=== PATIENT | female | born 1990 | race Caucasian/White ===

== ENCOUNTER 2017-01-05 09:05 | Inpatient (IN) | payer MEDICAID ==
[~2017-01-05] VITALS: Ht 157.5 cm; Wt 67.3 kg
--- NOTE | 2017-01-05 09:30 | NUR ---
PT BROUGHT TO ED BY MOTHER FROM HOME C/O RIGHT SIDED FLANK AND BACK PAIN WITH INTERMITTENT FEVER AND BODYACHES X1 DAY AND UTI SYMPTOMS X "FOREVER" WORSE SINCE THIS MORNING. PT A/O X4, INTERMITTENT TEARFULNESS, GENERALIZED WEAKNESS NOTED, RESPS EVEN AND UNLABORED, SKIN HOT, SLIGHLY MOIST TO TOUCH, NO S/S OF DISTRESS NOTED. PT DESCRIBES PAIN SHARP TO RIGHT FLANK AND PAIN "TO BONES." PT GOWNED, COOLING MEASURES IN PLACE.
--- NOTE | 2017-01-05 09:32 | NUR ---
DR. RODRIGUEZ AT BEDSIDE FOR MSE.
[2017-01-05 10:01] LABS: PLATELET COUNT 305 x10^3mcL (130-400)
--- NOTE | 2017-01-05 10:06 | NUR ---
PORTABLE CHEST X-RAY IN PROGRESS AT BEDSIDE.
[2017-01-05 10:08] LABS: RED CELL DISTRIBUTION WIDTH 14.6 % (11.5-14.5)
--- NOTE | 2017-01-05 10:10 | NUR ---
I INFORMED DR SOLIS REGARDING THE WBC'S FROM LAB CALLED HE IS AWARE
[2017-01-05 10:23] LABS: CALCIUM 8.2 mg/dL (8.5-10.1); CARBON DIOXIDE 26.4 mmol/L (21-32); CHLORIDE SERUM 95 mmol/L (98-107); CREATININE SERUM 0.9 mg/dL (0.6-1.0); GFR1 > 60 mL/min; GLUCOSE SERUM 132 mg/dL (74-106); POTASSIUM SERUM 3.6 mmol/L (3.5-5.1); SODIUM SERUM 132 mmol/L (136-145)
[2017-01-05 10:27] LABS: ALKALINE PHOSPHATASE 86 U/L (46-116); ALT/SGPT 22 U/L (14-59); AST/SGOT 18 U/L (15-37); BILIRUBIN TOTAL 0.5 mg/dL (0.20-1.00); TOTAL PROTEIN, SERUM 7.8 g/dL (6.4-8.2)
[2017-01-05 10:29] LABS: ALBUMIN 3.2 g/dL (3.4-5.0)
[2017-01-05 10:40] LABS: BAND NEUTROPHIL 5 % (0-10); BASOPHIL 0 % (0-2); MONOCYTE 5 % (0-7); SEGMENTED NEUTROPHILS 85 % (37-75)
[2017-01-05 10:41] LABS: PLATELET MORPHOLOGY PLATELETS INCREASED; rbc morphology (normal/abnorm) ABNORMAL (NORMAL)
--- NOTE | 2017-01-05 10:45 | NUR ---
PT LAYING IN ED GURNEY IN POSITION OF COMFORT, CONTINUES TO SLEEP AND BE EASILY AROUSABLE, RESPS EVEN AND UNLABORED, SKIN WARM AND DIAPHORETIC, COOLING MEASURES CONTINUED, NO S/S OF DISTRESS NOTED.
--- NOTE | 2017-01-05 10:50 | NUR ---
ROCEPHIN 1G IV COMPLETED TO LEFT AC IV WITH NO ADVERSE REACTIONS AND NO SIGNS OF INFILTRATION NOTED TO IV SITE. PT IN NO DISTRESS.
--- NOTE | 2017-01-05 11:01 | NUR ---
22OOCC NS BOLUS IV COMPLETED PER MD ORDER AND SESPIS PROTOCOL. PT IN NO DISTRESS.
[2017-01-05 11:12] LABS: UA SPECIFIC GRAVITY <=1.005 (1.005-1.035); microscopic required? YES; urine erythrocyte 1+ (NEGATIVE)
--- NOTE | 2017-01-05 11:26 | NUR ---
PT LAYING IN ED GURNEY IN POSITION OF COMFORT, SLEEPING AND EASILY AROUSABLE, RESPS EVEN AND UNLABORED, COOLING MEASURES CONTINUED, TEMP DECREASED TO 100.2F ORAL, NO S/S OF DISTRESS NOTED. COMFORT MEASURES IN PLACE.
--- NOTE | 2017-01-05 11:40 | NUR ---
PT LAYING IN ED GURNEY, SKIN NOW WARM AND DRY TO TOUCH, RESPS EVEN AND UNLABORED, NO S/S OF DISTRESS NOTED.
--- NOTE | 2017-01-05 12:01 | NUR ---
RESIDENT AT BEDSIDE FOR EVAL.
[2017-01-05 12:24] LABS: AMPHETAMINE QUAL UR POSITIVE (NEG <=1000)
[2017-01-05 12:29] LABS: MAGNESIUM 1.3 mg/dL (1.8-2.4); PHOSPHOROUS 3.2 mg/dL (2.5-4.9)
[2017-01-05 12:31] LABS: CHOLESTEROL/HDL RATIO 1.7
[2017-01-05 12:41] LABS: T4(THYROXINE) 5.8 ug/dL (4.7-13.3)
--- NOTE | 2017-01-05 12:41 | NUR ---
REPORT CALLED TO LUKASZ RN, PT TO BE ADMITTED TO TELE ROOM 253, PT IN NO DISTRESS.
--- NOTE | 2017-01-05 12:45 | NUR ---
RECEIVED PT FROM ED VIA GURNEY IN NO ACUTE DISTRESS. PT AMBULATED TO BED. RESPIRATIONS EVEN AND UNLABORED ON RA. AAOX4. PT HAS HR OF 100, ALL OTHER VITALS WNL. PT C/O R FLANK PAIN BUT DOES NOT WANT PAIN MEDS AT THIS TIME. SKIN COOL TO TOUCH, DRY/INTACT. STOMACH ROUND, SOFT, NON TENDER. TRACE EDEMA TO BLE. IVF INFUSING AT BEDSIDE. BED IN LOWEST POSITION. CALL LIGHT WITHIN REACH. WILL CONTINUE TO MONITOR.
[2017-01-05 13:10] VITALS: BP 103/62
[2017-01-05 13:14] VITALS: BP 103/62
[2017-01-05 13:15] VITALS: Ht 157.5 cm; Wt 67.3 kg
[2017-01-05 15:58] LABS: T3 TOTAL 0.96 ng/mL
--- NOTE | 2017-01-05 16:05 | NUR ---
PT EXPERIENCING CHILLS, BP 118/97 (104), TEMP 99.3, HR 104, RESP 22, SPO2 95 ON RA. PT GIVEN WARM BLANKET, TORADOL GIVEN FOR 8/10 R FLANK PAIN. NS INFUSINGAT 100 ML/HR. DR PEREIRA AWARE.
[2017-01-05 18:10] VITALS: BP 118/97
--- NOTE | 2017-01-05 18:52 | NUR ---
PT RESTING IN BED IN NO ACUTE DISTRESS. RESPIRATIONS EVEN AND UNLABORED ON RA. AAOX4. IVF INFUSING AT BEDSIDE. PT SAYS PAIN IS TOLERABLE AT THIS TIME. ALL NEEDS AND CONCERNS ADDRESSED. IVF INFUSING AT BEDSIDE. BED IN LOWEST POSITION. CALL LIGHT WITHIN REACH. WILL ENDORSE TO ONCOMING SHIFT.
--- NOTE | 2017-01-05 19:45 | NUR ---
RECEIVED PT FROM PREVIOUS SHIFT NURSE. PT AOX4. TELE #18, ST, HR 116. DENIES CP/PRESSURE. PULSES PRESENT, TRACE EDEMA BLE. LUNG SOUNDS CLEAR, ON RA. DENIES SOB/DIFFICULTY BREATHING. BOWEL SOUNDS ACTIVE. VOIDS FREELY. GENERALIZED WEAKNESS. SKIN INTACT. IV INTACT AND PATENT. BED IN LOWEST POSITION. CALL LIGHT WITHIN REACH. WILL CONTINUE TO MONITOR.
--- NOTE | 2017-01-05 21:04 | NUR ---
TEMP 102.6, [place] RECENTLY GIVEN. ICE PACKS APPLIED. WILL CONTINUE TO MONITOR.
[2017-01-05 21:07] VITALS: BP 114/69
--- NOTE | 2017-01-05 22:09 | NUR ---
TEMP RECHECKED, NOW 98.8. WILL CONTINUE TO MONITOR.
--- NOTE | 2017-01-06 01:22 | NUR ---
PT RESTING IN BED. RR EVEN AND UNLABORED. NO ACUTE DISTRESS NOTED. CALL LIGHT WITHIN REACH. BED IN LOWEST POSITION. WILL CONTINUE TO MONITOR.
[2017-01-06 05:31] VITALS: BP 106/61
[2017-01-06 06:56] LABS: CALCIUM 7.4 mg/dL (8.5-10.1); CARBON DIOXIDE 27.2 mmol/L (21-32); CHLORIDE SERUM 102 mmol/L (98-107); CREATININE SERUM 0.6 mg/dL (0.6-1.0); GFR1 > 60 mL/min; GLUCOSE SERUM 105 mg/dL (74-106); MAGNESIUM 1.5 mg/dL (1.8-2.4); POTASSIUM SERUM 3.3 mmol/L (3.5-5.1); SODIUM SERUM 136 mmol/L (136-145)
[2017-01-06 06:59] LABS: PLATELET COUNT 236 x10^3mcL (130-400)
[2017-01-06 07:06] LABS: RED CELL DISTRIBUTION WIDTH 15.1 % (11.5-14.5)
--- NOTE | 2017-01-06 07:25 | NUR ---
AAO X4.C/O H/A AT 7/10 PAIN SCALE.WILL MEDICATE NEEDED.LUNGS CLEAR. ON SR-ST ON THE MONITOR.IVF NS GOING AT 100 ML/HR INFUSING WELL.CALL LIGHT WITHIN REACH.INSTRUCTED TO CALL FOR ANY PAIN/DISCOMFORT.WILL CONTINUE TO MONITOR PT.
[2017-01-06 08:34] LABS: BAND NEUTROPHIL 4 % (0-10); BASOPHIL 0 % (0-2); MONOCYTE 8 % (0-7); SEGMENTED NEUTROPHILS 79 % (37-75)
[2017-01-06 08:36] LABS: PLATELET MORPHOLOGY PLATELETS NORMAL; rbc morphology (normal/abnorm) ABNORMAL (NORMAL)
[2017-01-06 09:07] VITALS: BP 102/61
--- NOTE | 2017-01-06 09:30 | NUR ---
WENT TO CHECK ON PT.CRYING.CLAIMS WANT TO GO HOME BUT SHE'S NOT WELL YET.MISSES HER CHILDREN A LOT. REASSURED PT.ALSO TELLS NURSE THAT SHE IS AFRAID TO .REASSURED PT THAT SHE IS IN THE HOSPITAL.AND SHE'S GETTING TREATMENT FOR HER UTI AND PYELONEPHRITIS.INFORMED PT TO RELAX.WILL CONTINUE TO MONITOR.
--- NOTE | 2017-01-06 12:55 | NUR ---
C/O BACK PAIN. MEDICATED WITH NORCO PER EMAR.
[2017-01-06 13:22] VITALS: BP 102/68
--- NOTE | 2017-01-06 14:03 | NUR ---
ALSO C/O CHILLS.CHECKED HER T=98.7.
--- NOTE | 2017-01-06 14:03 | NUR ---
MEDICATED WITH TORADOL ORDERED FOR C/O UNRELIEVED H/A AT 8/10 PAIN SCALE. WILL CONTINUE TO MONITOR.
--- NOTE | 2017-01-06 14:45 | NUR ---
WENT TO CHECK ON PATIENT.CRYING WHILE TALKING ON THE PHONE WITH SOMEBODY .
--- NOTE | 2017-01-06 15:45 | NUR ---
WENT TO CHECK ON PT.CLAIMS TO FEEL A LOT BETTER.DENIES ANY H/A AND SHAKING AT THE MOMENT.
[2017-01-06 17:23] VITALS: BP 98/63
--- NOTE | 2017-01-06 17:38 | NUR ---
GAVE PT NORCO 1 TAB FOR C/O H/A AND BACK PAIN AT 8/10 PAIN SCALE.WILL CONTINUE TO MONITOR.
--- NOTE | 2017-01-06 18:27 | NUR ---
NO SIGNIFICANT CHANGE NOTED.WILL ENDORSE TO NEXT SHIFT.
--- NOTE | 2017-01-06 19:50 | NUR ---
PT. SHOWERED AND BACK TO BED. PT. WAS ALSO ABLE TO VISIT HER KIDS IN [employer], ACCOMPANIED BY NURSE AND IS PRESENTLY BACK IN ROOM. NO COMPLAINTST AT THIS TIME. PT. AWAKE, ALERT, ORIENTED X4. DENIES HEADACHE OR DIZZINESS. BREATH SOUNDS CLEAR THROUGHOUT LUNG NEVAREZ, RESP. EVEN, UNLABORED. NO SOB NOTED. NO EDEMA TO EXTREMITIES. PEDAL PULSES STRONG. IV SITE WNL, FLUSHING WELL. CALL LIGHT WITHIN REACH.
[2017-01-06 20:38] VITALS: BP 101/53
--- NOTE | 2017-01-06 21:45 | NUR ---
PT. C/O PAIN IN BACK OF HER NECK AND LOWER BACK PAIN. PAIN IN NECK, 10/10 PER PT. PT. CRYING AND MOANING. DR. HERNANDEZ AWARE. HEATING PAD ORDERED. ALSO ORDERS TO GIVE TORADOL W/ HEATING PAD. WILL MONITOR.
--- NOTE | 2017-01-07 03:30 | NUR ---
PT. AWAKENED AND CRYING, STATED THAT SHE IS COLD AND THE COLD IS CAUSING HER TO HAVE PAIN IN HER RT CHEST AREA THAT RADIATES TO HER BACK. ALSO C/O HEADACHE. PT. OFFERED WARM BLANKET. PRN NORCO GIVEN. WILL MONITOR.
[2017-01-07 05:14] VITALS: BP 118/79
[2017-01-07 06:03] LABS: PLATELET COUNT 254 x10^3mcL (130-400)
--- NOTE | 2017-01-07 06:03 | NUR ---
PT. C/O HEADACHE AND BACK PAIN. PRN TORADOL IVP GIVEN.
[2017-01-07 06:24] VITALS: BP 118/79
[2017-01-07 06:33] LABS: CALCIUM 7.9 mg/dL (8.5-10.1); CARBON DIOXIDE 26.5 mmol/L (21-32); CHLORIDE SERUM 104 mmol/L (98-107); CREATININE SERUM 0.6 mg/dL (0.6-1.0); GFR1 > 60 mL/min; GLUCOSE SERUM 102 mg/dL (74-106); MAGNESIUM 1.8 mg/dL (1.8-2.4); POTASSIUM SERUM 3.8 mmol/L (3.5-5.1); SODIUM SERUM 137 mmol/L (136-145)
[2017-01-07 06:44] LABS: BASOPHIL % 0 % (0-2)
--- NOTE | 2017-01-07 07:50 | NUR ---
PT RECEIVED AAOX4, CONVERSING WELL IN FULL SENTENCES. DENIES ANY HEADACH AT THIS TIME. C/O NECK PAIN THAT OCCASIONALLY RADIATES TO HEAD. RESP EVEN AND UNLABORED ON RA. DENIES ANY SOB OR COUGH. DENIES ANY CP OR PRESSURE. IV ON LAC INTACT, 20G, INFUSING NS AT 100ML/HR. ABD ROUND/SOFT WITH ACTIVE BS IN ALL QUADS. DENIES ANY ABD PAIN OR PRESSURE. VOIDING WELL WITH BRP. AMBULATORY. DENIES ANY NEEDS AT THIS TIME. CALL LIGHT WITHIN REACH.
[2017-01-07 09:00] VITALS: BP 109/69
--- NOTE | 2017-01-07 11:02 | NUR ---
PT CONTINUES TO C/O HEADACHE, STARTING FROM NECK AND RADIATING TO NECK. NOTED WITH TENSE MUSCLES ON RIGHT NECK/SHOULDER. KPAD IN PLACE. DR LEE MADE AWARE, WITH NEW ORDER FOR FLEXERIL PO. WILL GIVE ORDERED.
--- NOTE | 2017-01-07 12:15 | NUR ---
PT DENIES ANY HEADACHE AT THIS TIME. DENIES ANY NEEDS AT THIS TIME.
--- NOTE | 2017-01-07 15:50 | NUR ---
PT ASLEEP. RESP EVEN AND UNLABORED. CALL LIGHT WITHIN EASY REACH.
--- NOTE | 2017-01-07 17:07 | NUR ---
PT REFUSING AFTERNOON FINGERSTICK FOR BLOOD GLUCOSE. DR ROSA WOOD.
[2017-01-07 17:23] VITALS: BP 115/69
--- NOTE | 2017-01-07 17:45 | NUR ---
DR PARKER AT BEDSIDE TO EVALUATE PATIENT.
--- NOTE | 2017-01-07 18:04 | NUR ---
PT CRYING WITH A SEVERE HEADACHE AFTER PSYCH EVAL COMPLETED. MEDICATED WITH NORCO ORDERED PRN, SEE EMAR.
--- NOTE | 2017-01-07 18:11 | NUR ---
KEPT ROOM DARK. PT RESTING WITH EYES CLOSED, NO LONGER CRYING. WILL CONTINUE TO MONITOR.
--- NOTE | 2017-01-07 19:21 | NUR ---
BEDSIDE REPORT GIVEN TO EDGAR HGOUE TO ASSUME CARE.
--- NOTE | 2017-01-07 19:30 | NUR ---
PT IS A/O x4. LUNGS ARE CLEAR BILATERALLY. NO COMPLAIN OF CHEST PAIN OR PRESSURE. PT COMPLAINED OF A HEADACHE STATING THAT SHE FEELS THAT, "HER BRAIN IS TRYING TO GET OUT." PT IS VISIABLLY UPSET AND IS TEARFUL. AM NURSE ADMINISTERED PRN MEDICATION. WILL FOLLOW UP ON RESULTS. PM NURSE MADE PT. COMFORTABLE. BOWELS SOUNDS PRESENT. NO EDEMA. PEDIAL PULSES PRESENT. KAPD IS PLACED ON PT BACK. SKIN IS INTACT. IV ON LAC IS PATENT AND NS IS RUNNING PER MD ORDER. NO SIGNS OF INFILTRATION. VISITOR IS AT BEDSIDE. CALL LIGHT WITHIN REACH. WILL CONTINUE TO MONITOR.
--- NOTE | 2017-01-07 20:10 | NUR ---
PT STATES FEELING MUCH BETTER AND HER HEADACHE IS GONE. PT IS NO LONGER TEARFUL. PT IS CALM AND SMILING. MADE PT. COMFORTABLE. WILL CONTINUE TO MONTIOR.
[2017-01-07 21:20] VITALS: BP 112/65
--- NOTE | 2017-01-08 00:30 | NUR ---
PT IS SLEEPING IN BED. NO SIGNS OF ANY PAIN OR DISCOMFORT. BREATHING EVEN AND UNLABORED. IV IS INTACT WITH NO SIGNS OF INFILTRATION. INFUSING NS PER MD ORDER. BED IN LOWEST SETTING. CALL LIGHT WITHIN REACH. WILL CONTINUE TO MONTIOR.
--- NOTE | 2017-01-08 05:56 | NUR ---
PT REFUSED GLUCOSE TEST. MD HERNANDEZ WAS NOTIFIED. NO NEW ORDERES WHERE GIVEN. PT COMPLAIN OF HEADACHE AND PRN WAS ADMIN. PT SEEMS TO BE AGITATED WHEN LAB CAME IN THIS MORNING. PT WAS SETTLED DOWN AND MADE COMFORTABLE. WILL ENDORSE TO AM NURSE.
[2017-01-08 06:11] VITALS: BP 113/70
[2017-01-08 06:25] LABS: BASOPHIL % 0.3 % (0-2); PLATELET COUNT 269 x10^3mcL (130-400)
[2017-01-08 06:28] LABS: CALCIUM 7.9 mg/dL (8.5-10.1); CARBON DIOXIDE 26.2 mmol/L (21-32); CHLORIDE SERUM 102 mmol/L (98-107); CREATININE SERUM 0.7 mg/dL (0.6-1.0); GFR1 > 60 mL/min; GLUCOSE SERUM 140 mg/dL (74-106); POTASSIUM SERUM 3.5 mmol/L (3.5-5.1); RED CELL DISTRIBUTION WIDTH 15.5 % (11.5-14.5); SODIUM SERUM 137 mmol/L (136-145)
--- NOTE | 2017-01-08 07:45 | NUR ---
AWAKE,ALERT AND ORIENTED,DENIES ANY PAIN AT THIS TIME,CALL LIGHT W/ IN REACH NO ACUTE DISTRESS NOTED,CALM AND COOPERATIVE,AMBULATED IN THE BATHROOM AND VOIDING WELL.WILL CONT. PLAN OF CARE.
--- NOTE | 2017-01-08 09:00 | NUR ---
HERE AND SEEN THE PT. MADE ROUNDS W/ OTHER MEDICAL STAFF AND UPDATED PT. PLAN OF CARE.
[2017-01-08 09:18] VITALS: BP 124/81
[2017-01-08] MEDS ORDERED: LEVAQUIN750 MG PO (10:13)
[2017-01-08] MEDS ORDERED: CYCLOBENZAPRINE5 MG PO (10:18)
--- NOTE | 2017-01-08 13:00 | NUR ---
DR. LEE WAS HERE AND SEEN THE PT. W/ ORDERS OK PT. TO GO HOME TODAY PT. MADE AWARE AND AWAITING HER RIDE.
[2017-01-08 13:02] VITALS: BP 124/81
--- NOTE | 2017-01-08 14:04 | NUR ---
PT. WENT HOME W/ STABLE CONDITION PER W/C ACC. W/ HER MOTHER DISCHARGED INSTRUCTIONS AND PRESCRIPTION GIVEN AND DISCUSSED TO PT. AND VERBALIZED UNDERSTANDING OF INSTRUCTIONS GIVEN NO ACUTE DISTRESS NOTED.
== END 2017-01-08 14:04 | disposition home or self-care (01) | DRG 720 ==
LOC: ED 09:05 → DU 11:55 → MU 01-06 17:45
PROVIDERS: Emergency Medicine; Family Medicine Sports Medicine; ADMIT Student in an Organized Health Care Education/Training Program
DX: A41.9 Sepsis, unspecified organism (principal); N17.0 Acute kidney failure with tubular necrosis; R65.20 Severe sepsis without septic shock; N12 Tubulo-interstitial nephritis, not specified as acute or chronic; E87.6 Hypokalemia; E87.1 Hypo-osmolality and hyponatremia; R73.03 Prediabetes; E83.42 Hypomagnesemia; F12.10 Cannabis abuse, uncomplicated; F15.10 Other stimulant abuse, uncomplicated; R80.9 Proteinuria, unspecified; F32.9 Major depressive disorder, single episode, unspecified; E87.8 Other disorders of electrolyte and fluid balance, not elsewhere classified; R31.9 Hematuria, unspecified; D64.9 Anemia, unspecified; Z59.0 Homelessness; Z68.27 Body mass index [BMI] 27.0-27.9, adult
CPT/HCPCS: 82962; 83880; 84439; J0696; J1885; J3475; J7030; J7050; Q0092